=== PATIENT | female | born 1930 | race Caucasian/White ===

== ENCOUNTER 2017-01-02 23:48 | Emergency (ER) | payer OTHER, BC ==
[~2017-01-02] VITALS: Ht 154.9 cm; Wt 46.8 kg
[~2017-01-02 23:48] MED LIST: AMBIEN10 MG PO; ASMANEX0.135 GM IH; ATACAND32 MG PO; BREO ELLIPTA I1 EACH IH; CATAPRES0.3 MG PO; COMBIVENT INH14.7 GM IH; COUMADIN4 MG PO; HYDROCHLOROTHIA25 MG PO; HYDRODIURIL,ORE25 MG PO; LOSARTAN POTAS100 MG PO; LOVASTATIN40 MG PO; MAGNESIUM250 MG PO; METOPROLOL TART25 MG PO; MONTELUKAST SOD10 MG PO; MULTIVITAMIN1 EAC1 PO; PRAVASTATIN SOD20 MG PO; PROTONIX40 MG PO; PriLOSEC PO; SINGULAIR10 MG PO; SPIRIVA1 INHALATI IH; TAMOXIFEN CITRA10 MG PO; VITAMIN C PO; VITAMIN D400 UNIT PO; WARFARIN SODIUM3 MG PO; ZANTAC75 M1 PO; vitamin c
[2017-01-03 00:49] LABS: EOSINOPHIL (%) 1.9 % (0-5); EOSINOPHIL COUNT 0.1 K/uL (0-0.3); IMMATURE GRANULOCYTE (%) 0.4 % (0.0-0.7); INSTRUMENT ABS NEUTROPHIL CT 4.2 K/uL; LYMPHOCYTE COUNT 1.6 K/uL (1.0-2.8); MCH 30.2 PG (29.0-34.0); MCHC 32.6 G/DL (30.0-36.0); MCV 92.6 FL (83-99); MEAN PLAT.VOLUME 9.5 uM^3 (9.5-12.4); MONOCYTE (%) 13.7 % (3-12); NEUTROPHIL COUNT 4.2 K/uL (1.8-6.4); PLATELET COUNT 242 K/uL (156-360); RBC DIS.WIDTH-CV 13.5 % (11.8-14.6); RED BLOOD COUNT 4.21 M/uL (3.80-5.20); WHITE BLOOD COUNT 6.9 K/uL (4.1-10.2)
[2017-01-03 00:53] LABS: INTER. NORMALIZED RATIO 3.3; PROTHROMBIN TIME 37.5 SEC (10.2-12.9)
[2017-01-03 00:57] LABS: CHLORIDE 95 mEq/L (99-109); POTASSIUM 4.3 mEq/L (3.7-5.4); SODIUM 132 mEq/L (136-147)
[2017-01-03 00:58] LABS: MAGNESIUM 1.9 mg/dL (1.3-2.7)
[2017-01-03 01:00] LABS: GLUCOSE 104 mg/dL (70-99)
[2017-01-03 01:01] LABS: ANION GAP 9 MEQ/L (2-14)
[2017-01-03 01:02] LABS: TOTAL BILIRUBIN 0.2 mg/dL (0.0-1.0)
[2017-01-03 01:03] LABS: ALKALINE PHOSPHATASE 74 IU/L (3-129); GFR ESTIMATE (CALCULATED) > 59 mL/min/
[2017-01-03 01:04] LABS: UREA NITROGEN (BUN) 17 mg/dL (9-23)
[2017-01-03 01:09] LABS: TROP-I INTERPRETATION NEGATIVE; TROPONIN-I 0.01 ng/mL (0.0-0.30)
[2017-01-03 01:58] VITALS: BP 113/84
== END 2017-01-03 01:59 | disposition home or self-care (01) ==
LOC: EME 23:48
PROVIDERS: Emergency Medicine
DX: I49.3 Ventricular premature depolarization (principal); R00.2 Palpitations; I48.91 Unspecified atrial fibrillation; Z87.891 Personal history of nicotine dependence; Z79.01 Long term (current) use of anticoagulants; I71.4 Abdominal aortic aneurysm, without rupture; I10 Essential (primary) hypertension; E78.5 Hyperlipidemia, unspecified; J44.9 Chronic obstructive pulmonary disease, unspecified; Z99.81 Dependence on supplemental oxygen
CPT/HCPCS: 71020; 80053; 83735; 84484; 85025; 85610; 93005; 99281; 99284

== ENCOUNTER 2017-05-26 16:28 | Emergency (ER) | payer OTHER, BC ==
[~2017-05-26] VITALS: Ht 157.5 cm; Wt 45.5 kg
[2017-05-26 17:48] LABS: HEMATOCRIT 44.6 % (36.0-46.0); HEMOGLOBIN 14.4 G/DL (11.9-15.5); MCH 30.9 PG (29.0-34.0); MCHC 32.3 G/DL (30.0-36.0); MCV 95.7 FL (83-99); RBC DIS.WIDTH-CV 14.1 % (11.8-14.6); RBC DIS.WIDTH-SD 49.8 % (39-53); RED BLOOD COUNT 4.66 M/uL (3.80-5.20); WHITE BLOOD COUNT 9.5 K/uL (4.1-10.2)
[2017-05-26 18:00] LABS: CHLORIDE 102 mEq/L (99-109); SODIUM 141 mEq/L (136-147)
[2017-05-26 18:02] LABS: GLUCOSE 86 mg/dL (70-99)
[2017-05-26 18:06] LABS: GFR ESTIMATE (CALCULATED) 56 mL/min/
[2017-05-26 18:07] LABS: UREA NITROGEN (BUN) 30 mg/dL (9-23)
[2017-05-26 18:53] LABS: PLAT.SUFFICIENCY ADEQUATE; PLATELET COUNT 254 K/uL (156-360)
[2017-05-26 19:39] LABS: MAGNESIUM 1.9 mg/dL (1.3-2.7)
[2017-05-26 20:03] LABS: INTER. NORMALIZED RATIO 1.9
[2017-05-26 21:01] LABS: THYROTROPIN (TSH) 3.4 MIU/L (0.4-5.5)
[2017-05-26 22:12] LABS: TROP-I INTERPRETATION NEGATIVE; TROPONIN-I 0.01 ng/mL (0.0-0.30)
[2017-05-26 22:38] VITALS: BP 142/72
== END 2017-05-26 22:39 | disposition home or self-care (01) ==
LOC: EME 16:28
PROVIDERS: Nurse Practitioner Family
DX: R00.2 Palpitations (principal); I48.91 Unspecified atrial fibrillation; R79.1 Abnormal coagulation profile; Z79.01 Long term (current) use of anticoagulants; J44.9 Chronic obstructive pulmonary disease, unspecified; Z99.81 Dependence on supplemental oxygen; I25.2 Old myocardial infarction; I10 Essential (primary) hypertension; E78.5 Hyperlipidemia, unspecified; Z85.3 Personal history of malignant neoplasm of breast; Z90.710 Acquired absence of both cervix and uterus; Z88.2 Allergy status to sulfonamides; Z88.1 Allergy status to other antibiotic agents; Z88.8 Allergy status to other drugs, medicaments and biological substances
CPT/HCPCS: 71046; 80048; 83735; 84439; 84443; 84484; 85027; 85610; 93005; 99281; 99285